=== PATIENT | female | born 1990 | race Caucasian/White ===

== ENCOUNTER 2017-07-29 15:48 | Emergency (ER) | payer BC, OTHER ==
--- NOTE | 2017-07-29 15:56 | PDOC ---
Rapid Medical Evaluation Time Seen by Provider: 07/29/17 15:51 Medical Evaluation: Allergies Allergy/AdvReac Type Severity Reaction Status Date / Time No Known Allergies Allergy Verified 04/16/15 18:13 07/29/17 15:53 Pt c/o: soumya breast pulling sensation worse on right x 1 week, was in [place] the week prior, injured to left breast while in [place], no nipple discharge Pt on brief exam: tenderness to bilateral pectroral muscle laterally Pt ordered for : Pt to proceed to the ED Discharge Disposition - Diagnosis Muscular chest pain - Referrals - Patient Instructions - Post Discharge Activity
[2017-07-29 16:01] VITALS: BP 120/74; PULSE 70; TEMP 97.8; BMI 24.2
[2017-07-29] MEDS ORDERED: IBUPROFEN 400 MG TABLET (FP) PO ONE ×2 (17:29→17:32)
--- NOTE | 2017-07-29 17:35 | PDOC ---
History of Present Illness - General Chief Complaint: Pain Stated Complaint: CHEST PAIN Time Seen by Provider: 07/29/17 15:51 History Source: Patient Exam Limitations: No Limitations - History of Present Illness Initial Comments: 07/29/17 17:30 Patient is here with complaints of intermittent lumps to her breasts. States had some tenderness to her left lateral breast wall what last week, but yesterday felt a mass that was tender to her right lateral breast. Denies any recent trauma to the right side however had a soft tissue injury to her left breast a week ago. Has had no redness, swelling, nipple discharge or skin changes. Has no history of breast issue. Has never breast fed. Occurred: reports: yesterday Severity: reports: mild, moderate Method of Injury: Yes: unknown Modifying Factors: improves with: None Loss of Consciousness: no loss of consciousness Associated Symptoms (Fall): denies symptoms Past History - Travel Traveled outside of the country in the last 30 days: No Close contact w/someone who was outside of country & ill: No - Past Medical History Allergies/Adverse Reactions: Allergies Allergy/AdvReac Type Severity Reaction Status Date / Time No Known Allergies Allergy Verified 07/29/17 15:59 Home Medications: Ambulatory Orders NK [No Known Home Medication] 07/29/17 COPD: No - Immunization History Immunization Up to Date: Yes - Suicide/Smoking/Psychosocial Hx Smoking History: Never smoked Review of Systems - Review of Systems Able to Perform ROS?: Yes Is the patient limited [place] proficient: Yes Constitutional: Yes: Symptoms Reported, See HPI, Malaise. No: Fever HEENTM: Yes: See HPI. No: Symptoms Reported, Eye Pain, Nose Pain, Nose Congestion Respiratory: Yes: See HPI. No: Symptoms reported, Cough, Wheezing ABD/GI: Yes: See HPI. No: Symptoms Reported All Other Systems: Reviewed and Negative *Physical Exam - Vital Signs Last Vital Signs Temp Pulse Resp BP Pulse Ox 97.8 F 70 20 120/74 97 07/29/17 15:59 07/29/17 15:59 07/29/17 15:59 07/29/17 15:59 07/29/17 15:59 - Physical Exam General Appearance: Yes: Nourished, Appropriately Dressed, Apparent Distress HEENT: positive: Normal ENT Inspection, TMs Normal, Pharynx Normal Neck: positive: Supple. negative: Tender, Lymphadenopathy (R), Lymphadenopathy (L) Respiratory/Chest: positive: Lungs Clear, Normal Breath Sounds, Other (patient has some cording and a small nodular mildly tender lesion to the lateral aspect of right breast that's approximately 1 cm by half centimeter in size. Is mobile. Has no skin changes, no nipple discharge, breasts are symmetrical. No obvious adenopathy palpated in either axilla or into breast tissue. No pain reproduced with pulling or pushing, pectoralis flexion.) Cardiovascular: positive: Regular Rate Gastrointestinal/Abdominal: positive: Soft. negative: Tender Musculoskeletal: positive: Normal Inspection Extremity: positive: Normal Capillary Refill, Normal Range of Motion Integumentary: positive: Normal Color Neurologic: positive: stock trader II-XII NML intact, Fully Oriented, Alert, Normal Mood/ Affect, Normal Response, Motor Strength 5/5 Progress Note - Progress Note Progress Note: Right breast tenderness, probable musculoskeletal versus lymphadenopathy. Patient has no other evidence or clinical history of cancerous changes. Reassured and recommended no manipulation for one week and follow-up with [facility] doctor for reevaluation and potential ultrasound to rule out any changes. We'll give NSAIDs for inflammation and tenderness. *DC/Admit/Observation/Transfer Diagnosis at time of Disposition: Muscular chest pain - Discharge Dispostion Disposition: HOME Condition at time of disposition: Stable Admit: No - Referrals Referrals: Adam Thomas MD [Primary Care Provider] - - Patient Instructions Printed Discharge Instructions: DI for Breast Pain (Mastalgia) Additional Instructions: Rest, ice to area on and off for 15 minutes 4-6 times a day Avoid heavy lifting or exercise until pain and swelling is resolved or until further directed Do not touch or manipulate breasts at all until seen by [facility] doctor next week May use ibuprofen 2-200 mg tablets every 6 hours as needed for pain Follow-up with [facility] doctor for reevaluation and potential further testing as needed - Post Discharge Activity Forms/Work/School Notes: Back to Work
== END 2017-07-29 17:40 | disposition home or self-care (01) ==
LOC: JERFT 15:48
DX: R07.89 Other chest pain (principal)
CPT/HCPCS: 99281-25

== ENCOUNTER 2021-02-06 12:06 | Inpatient (IN) | payer OTHER ==
[2021-02-06 14:49] VITALS: BMI 28.0
[2021-02-06] MEDS ORDERED: PROMETHAZINE HCL 25 MG/1 ML VIAL IVPUSH ONE ×2 (15:11→19:20)
[2021-02-06] MEDS ORDERED: OXYTOCIN 30 UNITS in 0.9% NS 30 UNIT/500 ML INFUS.BAG IVPB SCH (15:15)
[2021-02-06] MEDS: DEXTROSE 5%-LACTATED RINGERS 1,000 ML IV SCH ×2 (15:20→19:25)
[2021-02-06] MEDS ORDERED: OXYTOCIN 30 UNITS in 0.9% NS 30 UNIT/500 ML INFUS.BAG IVPB ONE (16:14)
[2021-02-06] MEDS ORDERED: BUTORPHANOL TARTRATE 2 MG/ML VIAL ONE ×2 (16:30→19:19)
[2021-02-06] MEDS ORDERED: PROMETHAZINE HCL 25 MG/1 ML VIAL ONE (16:30)
[2021-02-06] MEDS: BUTORPHANOL TARTRATE 2 MG/ML VIAL IVPUSH PRN ×2 (16:37→19:25)
[2021-02-06 17:49] LABS: BASO % 0.4 % (0-2.0); EOS % 0.2 % (0-4.5); HEMATOCRIT 33.7 % (32.4-45.2); HEMOGLOBIN 11.6 GM/dL (10.7-15.3); LYMPH % 12.2 % (8-40); MCH 33.1 pg (25.7-33.7); MCHC 34.4 g/dl (32.0-36.0); MEAN CELL VOLUME 96.4 fl (80-96); MEAN PLT VOLUME 9.8 fl (7.5-11.1); MONO % 7.7 % (3.8-10.2); NEUT % 79.5 % (42.8-82.8); PLATELET COUNT 121 10^3/uL (134-434); RDW 13.7 % (11.6-15.6); WHITE BLOOD COUNT 10.5 K/mm3 (4.0-10.0)
[2021-02-06 18:01] LABS: INR 0.95 (0.83-1.09); PROTHROMBIN TIME (PATIENT) 11.5 SEC (9.7-13.0)
[2021-02-06 18:03] LABS: ACTIVATED PTT 26.8 SECONDS (25.2-36.5)
[2021-02-06 18:18] LABS: CALCIUM 8.6 mg/dL (8.5-10.1)
[2021-02-06 18:19] LABS: BLOOD UREA NITROGEN 4.3 mg/dL (7-18)
[2021-02-06 18:22] LABS: CREATININE 0.5 mg/dL (0.55-1.3)
[2021-02-06] MEDS ORDERED: BUTORPHANOL TARTRATE 1 MG/ML VIAL IVPUSH ONE (19:20)
[2021-02-06] MEDS ORDERED: OXYTOCIN 20 UNITS in 0.9% NS 20 UNIT/1,000 ML INFUS.BAG IV ONE (20:14)
[2021-02-07] MEDS ORDERED: METHYLERGONOVINE MALEATE 0.2 MG/1 ML AMP IM PRN (01:57)
[2021-02-07] MEDS ORDERED: BISACODYL 10 MG SUPP.RECT RC PRN (01:57)
[2021-02-07] MEDS ORDERED: BENZOCAINE 20% 57 GM BOTTLE TP PRN (01:57)
[2021-02-07] MEDS ORDERED: BENZOCAINE 28 GM HEMORRHOIDAL OINTMENT TP PRN (01:57)
[2021-02-07] MEDS ORDERED: WITCH HAZEL 50% (TUCKS) 40 PAD/JAR PAD TP PRN (01:57)
[2021-02-07] MEDS ORDERED: OXYTOCIN 20 UNITS in 0.9% NS 20 UNIT/1,000 ML INFUS.BAG IV SCH (02:00)
[2021-02-07] MEDS ORDERED: OXYTOCIN 20 UNITS in 0.9% NS 20 UNIT/1,000 ML INFUS.BAG IV ONE (02:44)
[2021-02-07 03:13] LABS: CORD HCO3 23.2 mmHg (20-29); CORD PCO2 59.2 mmHg (30-78); CORD pH 7.211 (7.14-7.44)
[2021-02-07 03:15] LABS: CORD BASE EXCESS -7.1 mmol/L (0-2); CORD HCO3 19.3 mmHg (20-29); CORD PCO2 42.1 mmHg (30-78); CORD pH 7.279 (7.14-7.44)
[2021-02-07] MEDS: PRENATAL VITAMINS W/ FOLIC ACID TABLET (FP) PO SCH (10:42)
[2021-02-07] MEDS: IBUPROFEN 600 MG TABLET (FP) PO PRN ×2 (10:42→17:40)
[2021-02-07] MEDS: FERROUS SO4 325 MG TABLET (FP) PO SCH ×2 (10:42→21:09)
[2021-02-08] MEDS: IBUPROFEN 600 MG TABLET (FP) PO PRN ×5 (02:01→23:02)
[2021-02-08] MEDS: FERROUS SO4 325 MG TABLET (FP) PO SCH ×2 (11:16→21:43)
[2021-02-08] MEDS: PRENATAL VITAMINS W/ FOLIC ACID TABLET (FP) PO SCH (11:16)
[2021-02-08] MEDS: ACETAMINOPHEN 325 MG TABLET (FP) PO PRN ×2 (11:17→18:46)
[2021-02-08 11:48] LABS: BASO % 0.5 % (0-2.0); EOS % 1.2 % (0-4.5); HEMOGLOBIN 10.7 GM/dL (10.7-15.3); LYMPH % 16.6 % (8-40); MCH 33.6 pg (25.7-33.7); MCHC 34.7 g/dl (32.0-36.0); MEAN CELL VOLUME 96.9 fl (80-96); MEAN PLT VOLUME 9.3 fl (7.5-11.1); MONO % 7.2 % (3.8-10.2); NEUT % 74.5 % (42.8-82.8); PLATELET COUNT 141 10^3/uL (134-434); RDW 14.1 % (11.6-15.6); WHITE BLOOD COUNT 10.8 K/mm3 (4.0-10.0)
[2021-02-08] MEDS ORDERED: SENNOSIDES/DOCUSATE COMBO (SENNA PLUS) TABLET (UD) PO PRN (22:00)
[2021-02-09] MEDS: IBUPROFEN 600 MG TABLET (FP) PO PRN ×2 (07:16→13:53)
[2021-02-09] MEDS: PRENATAL VITAMINS W/ FOLIC ACID TABLET (FP) PO SCH (10:18)
[2021-02-09] MEDS: FERROUS SO4 325 MG TABLET (FP) PO SCH (10:18)
[2021-02-09 15:09] VITALS: BP 114/72; PULSE 110; TEMP 98.1
[2021-02-11 09:29] LABS: POC NITRAZINE NEG
== END 2021-02-09 15:25 | disposition home or self-care (01) | DRG 807 ==
LOC: JDEL 12:06 → JLDR 14:25 → J3W 02-07 04:40
PROVIDERS: ADMIT Obstetrics & Gynecology; ATTEND Obstetrics & Gynecology
PROC: 10E0XZZ Delivery of Products of Conception, External Approach (ICD-10-PCS; principal; 2021-02-07)
PROC: 0W8NXZZ Division of Female Perineum, External Approach (ICD-10-PCS; 2021-02-07)
DX: O48.0 Post-term pregnancy (principal); Z37.0 Single live birth; Z3A.40 40 weeks gestation of pregnancy
CPT/HCPCS: 36415; 36600; 59409; 80048; 82803; 83986-QW; 85025; 85610; 85730; 86780; 86850; 86870; 86900; 86901; 86902; C9803; U0003; U0005